=== PATIENT | male | born 1965 | race Caucasian/White ===

== ENCOUNTER → 2021-04-08 13:07 | Outpatient (BNVA) | payer BC, SELFPAY | PROVIDERS: PCP Internal Medicine; Visit Provider Urology ==

== ENCOUNTER → 2021-10-06 09:42 | Outpatient (BNVA) | payer BC, SELFPAY | PROVIDERS: PCP Internal Medicine; Visit Provider Urology | DX: N40.1 Benign prostatic hyperplasia with lower urinary tract symptoms (principal); N13.8 Other obstructive and reflux uropathy; R35.1 Nocturia; N52.9 Male erectile dysfunction, unspecified; Z79.899 Other long term (current) drug therapy | CPT/HCPCS: 51798 ==

== ENCOUNTER → 2022-12-10 14:05 | Outpatient (BNVA) | payer BC, SELFPAY | PROVIDERS: PCP Internal Medicine; Visit Provider Urology | DX: N40.1 Benign prostatic hyperplasia with lower urinary tract symptoms (principal); N13.8 Other obstructive and reflux uropathy; N52.1 Erectile dysfunction due to diseases classified elsewhere; R35.1 Nocturia; R33.9 Retention of urine, unspecified; Z79.899 Other long term (current) drug therapy | CPT/HCPCS: 51798 ==

== ENCOUNTER 2023-06-15 10:12 | Outpatient (AMB) | payer BC, SELFPAY ==
--- NOTE | 2023-06-15 09:31 | MHC.OFFVIS ---
Intake Intake Visit Reasons: 6m/follow up Allergies No Known Allergies Allergy (Verified 12/10/22 14:26) PFSH Medical History Depression Erectile dysfunction History of urinary hesitancy Hyperlipidemia Memory loss Nocturia Testicle pain Weak urinary stream Surgical History History of surgery Coding
--- NOTE | 2023-06-15 10:13 | MHC.OFFVIS ---
Intake Intake Visit Reasons: 6m/follow up [phone] Intake Note: Patient is presesnt for telephone appt Allergies No Known Allergies Allergy (Verified 12/10/22 14:26) Medication List - Last Reconciled 06/15/23 by Gopal Scott MD atorvastatin 20 mg PO DAILY bupropion HCl 150 mg PO QAM bupropion HCl 300 mg PO DAILY quetiapine 50 mg PO BEDTIME terazosin 10 mg PO BEDTIME 90 days HPI HPI Comments History of Present Illness Details Francesco BOWDEN is a very pleasant male. He is a patient of Dr Swenson. He is seen for the following urologic conditions. - BPH - ED Telemedicine Evaluation 15 min Consultation [employer] [place] Video attempted Variable hesitancy and stream Did discuss possibility prostate procedure May double medication on days he is traveling Interested in GreenLight laser to be performed in mid July - small prostate Lower Urinary Tract Symptoms:? Continued good effect from terazosin ? Current treatment includes ?Terazosin 10 mg effective, tamsulosin had become ineffective ? Symptoms include?incomplete emptying, weak stream, nocturia (>2), and are progressing.? Results from testing include? cystoscopy ?no abnormality seen 03/12 - trabeculation with early diverticulum ? renal/bladder us ?Yes ? date ? 02/09 Good emptying ? PVR ?30 ? prostate size ?30 ? psychiatric diagnosis ?No ? Testing at next visit will include?12 month review Erectile dysfunction:? He presents today for?for continued evaluation and management of erectile dysfunction.? Symptoms have been present for/since?Ongoing.? Current treatment includes?- Good response to sildenafil 40 mg.? PFSH Medical History Depression Memory loss Hyperlipidemia Testicle pain Erectile dysfunction Nocturia History of urinary hesitancy Weak urinary stream Surgical History History of surgery Review of Systems Const All systems reviewed & are unremarkable except as noted in HPI and below Reports no additional complaints Resp Reports no additional complaints GI Reports no additional complaints Reports as per HPI Musc Reports no additional complaints Physical Exam Telemedicine evaluation Appropriate responses Regular breathing rate and rhythm HEENT Head: Yes normal to inspection Ears: hearing grossly normal bilaterally Eyes General: appearance normal, both eyes and all related structures Neck Neck: Yes normal visual inspection Chest Chest palpation & inspection: normal inspection of the chest Resp Effort & Inspection: normal respiratory effort and able to speak in complete sentences Assessment & Plan Assessment & Plan (1) BPH w urinary obs/LUTS: Code(s): N40.1 - Benign prostatic hyperplasia with lower urinary tract symptoms; N13.8 - Other obstructive and reflux uropathy (2) Weak urinary stream: Code(s): R39.12 - Poor urinary stream (3) Erectile dysfunction: Code(s): N52.9 - Male erectile dysfunction, unspecified Qualifiers: Erectile dysfunction type: vasculogenic Plan We discussed the nature of the decision and reasonable options for performing a prostate intervention. Interventions include TURP, GreenLight laser enucleation of the prostate, GreenLight laser ablation of the prostate, transurethral incision of the prostate, and I-Tend prostate procedure. Options such as medical therapy were discussed. The relative uncertainties and benefits related to each alternate procedure were adequately discussed. General surgical risks including, but not limited to, pain, bleeding, infection, myocardial infarction, pulmonary embolus, deep vein thrombosis and cerebrovascular accident which may result in further hospitalization were discussed. Full disclosure of the procedure as well as all major risks, benefits and complications were discussed including but not limited to damage to the urethra or bladder neck, recurrent BPH, retrograde ejaculation, bladder infection, urge, de kristopher frequency, incomplete emptying, dysuria, remote chance of erectile dysfunction, epididymitis, and meatal stenosis. The success rate of the procedure was discussed. Success of the procedure in the short-term does not necessarily guarantee that long-term success will be maintained. Suitable follow up will need to be maintained. The patient showed understanding of discussion. An opportunity was provided for questions to be answered and wishes to proceed with the following procedure. - GLP incisions Patient Instructions: Imaging studies, laboratory and physical exam results were discussed and reviewed in detail. No major barriers to patient understanding were identified. An opportunity to ask questions regarding the treatment plan was provided. All questions were answered. The patient expressed understanding and agreement with the above treatment plan. The patient is aware they should contact our office by phone for worsening of their current condition or the appearance of new urologic symptoms. Compliance is encouraged with any medications and followup testing that is ordered. It is a privilege to participate in the urologic care of your patient. If you have any questions or concerns regarding treatment for the above conditions, or other urologic issues, please do not hesitate to contact me. The office telephone contact is [phone]. This note is constructed using voice recognition software. While every effort has been made to ensure accuracy water superintendent errors may have been included. Yours sincerely, Dr Gopal Scott MD, [facility] - Urology Providers of Expert, Compassionate Care for the Genitourinary System Telehealth Telehealth Location of provider rendering services: practice address Location of patient: address on file Patient Identification confirmed using: Name, : Yes Telehealth method: video Patient verbally consented to treatment: Yes Patient verbally consented to billing insurance company: Yes Patient informed of any privacy concerns related to visit: Yes Coding Level of Care Code Tele Est Pt Level 4 (68762) Diagnoses BPH w urinary obs/LUTS N40.1; N13.8 Weak urinary stream R39.12 Erectile dysfunction N52.9 Erectile dysfunction type: vasculogenic
== END 2023-06-15 10:48 | disposition home or self-care (01) ==
LOC: HO.HUSH 10:12
PROVIDERS: PCP Internal Medicine; Visit Provider Urology
DX: N40.1 Benign prostatic hyperplasia with lower urinary tract symptoms (principal); N13.8 Other obstructive and reflux uropathy; R39.12 Poor urinary stream; N52.9 Male erectile dysfunction, unspecified
CPT/HCPCS: 99214

== ENCOUNTER → 2023-06-15 10:12 | Outpatient (BNVA) | payer BC, SELFPAY | PROVIDERS: PCP Internal Medicine; Visit Provider Urology ==

== ENCOUNTER 2023-09-01 10:23 | Outpatient (AMB) | payer BC, SELFPAY ==
--- NOTE | 2023-09-01 10:22 | A.OFFVIS_ITS ---
Intake Intake Visit Reasons: H&P Greenlight Intake Note: Patient presents today for a Greenlight Procedure follow-up Meds- Terazosin Allergies to Antibiotic- No Known Allergies Blood Thinner- None Clinical Writer Required: No Allergies No Known Allergies Allergy (Verified 09/01/23 10:24) HPI HPI Comments History of Present Illness Details Francesco BOWDEN is a very pleasant male. He is a patient of Dr Swenson. He is seen for the following urologic conditions. - lower urinary tract symptoms - erectile dysfunction Telemedicine Evaluation 15 min Consultation [employer] Palmira Video attempted Discussion regarding GreenLight laser Expectations outlined Vaughn catheter will stay from day of surgery for 3 days Two weeks of restricted activity to allow healing Will have 2-4 weeks of urge frequency following the procedure Lower Urinary Tract Symptoms:? Continued good effect from terazosin ? Current treatment includes ?Terazosin 10 mg effective, tamsulosin had become ineffective ? Symptoms include?incomplete emptying, weak stream, nocturia (>2), and are progressing.? Results from testing include? cystoscopy ?no abnormality seen 03/12 - trabeculation with early diverticulum ? renal/bladder us ?Yes ? date ? 02/09 Good emptying ? PVR ?30 ? prostate size ?30 ? psychiatric diagnosis ?No ? Testing at next visit will include?12 month review Erectile dysfunction:? He presents today for?for continued evaluation and management of erectile dysfunction.? Symptoms have been present for/since?Ongoing.? Current treatment includes?- Good response to sildenafil 40 mg.? [facility] Medical History Depression Memory loss Hyperlipidemia Testicle pain Erectile dysfunction Nocturia History of urinary hesitancy Weak urinary stream Surgical History History of surgery Review of Systems Const All systems reviewed & are unremarkable except as noted in HPI and below Reports no additional complaints Resp Reports no additional complaints GI Reports no additional complaints Reports as per HPI Musc Reports no additional complaints Physical Exam Telemedicine evaluation Appropriate responses Regular breathing rate and rhythm HEENT Head: Yes normal to inspection Ears: hearing grossly normal bilaterally Eyes General: appearance normal, both eyes and all related structures Neck Neck: Yes normal visual inspection Chest Chest palpation & inspection: normal inspection of the chest Resp Effort & Inspection: normal respiratory effort and able to speak in complete sentences Assessment & Plan Assessment & Plan (1) Erectile dysfunction: Code(s): N52.9 - Male erectile dysfunction, unspecified Qualifiers: Erectile dysfunction type: vasculogenic (2) Nocturia: Code(s): R35.1 - Nocturia (3) BPH w urinary obs/LUTS: Code(s): N40.1 - Benign prostatic hyperplasia with lower urinary tract symptoms; N13.8 - Other obstructive and reflux uropathy Plan Risks, benefits and alternatives to therapy were discussed. These include but are not limited to infection, bleeding, damage to local organs and tissues, need for further interventions. Anesthetic risks regarding cardiac arrhythmia, blood clots, and potential mortality were discussed. The patient understands the typical recovery time and the outpatient nature of the procedure. After consideration of these risks the patient gives full informed consent and they wish to move ahead with the procedure. GreenLight laser prostatectomy Patient Instructions: Imaging studies, laboratory and physical exam results were discussed and reviewed in detail. No major barriers to patient understanding were identified. An opportunity to ask questions regarding the treatment plan was provided. All questions were answered. The patient expressed understanding and agreement with the above treatment plan. The patient is aware they should contact our office by phone for worsening of their current condition or the appearance of new urologic symptoms. Compliance is encouraged with any medications and followup testing that is ordered. It is a privilege to participate in the urologic care of your patient. If you have any questions or concerns regarding treatment for the above conditions, or other urologic issues, please do not hesitate to contact me. The office telephone contact is [phone]. This note is constructed using voice recognition software. While every effort has been made to ensure accuracy building performance specialist errors may have been included. Yours sincerely, Dr Gopal Scott MD, [facility] - Urology Providers of Expert, Compassionate Care for the Genitourinary System Telehealth Telehealth Location of provider rendering services: practice address Location of patient: address on file Patient Identification confirmed using: Name, : Yes Telehealth method: video Patient verbally consented to treatment: Yes Patient verbally consented to billing insurance company: Yes Patient informed of any privacy concerns related to visit: Yes Coding Level of Care Code Tele Est Pt Level 3 (17428) Diagnoses Erectile dysfunction N52.9 Erectile dysfunction type: vasculogenic Nocturia R35.1 BPH w urinary obs/LUTS N40.1; N13.8
== END 2023-09-01 11:27 | disposition home or self-care (01) ==
LOC: HO.HUSH 10:23
PROVIDERS: PCP Internal Medicine; Referring Provider Internal Medicine; Visit Provider Urology
DX: N40.1 Benign prostatic hyperplasia with lower urinary tract symptoms (principal); N52.9 Male erectile dysfunction, unspecified; R35.1 Nocturia; N13.8 Other obstructive and reflux uropathy
CPT/HCPCS: 99213

== ENCOUNTER → 2023-09-01 10:23 | Outpatient (BNVA) | payer BC, SELFPAY | PROVIDERS: PCP Internal Medicine; Visit Provider Urology ==

== ENCOUNTER 2023-09-19 06:17 | Day surgery (SDC) | payer BC, SELFPAY ==
--- NOTE | 2023-09-16 09:16 | HO.ANESPROP2 ---
Documented by User: Kareen Jaime NP 09/16/23 09:16 HPI - Anesthesia Eval Consult details Narrative: 58yo M for Laser Ablation Prostate excision w/Green Light PMFSH Active Problems Active Problems: All Active Problems (Updated 06/15/23 @ 10:43 by Gopal Scott MD) BPH w urinary obs/LUTS (Acute) Weak urinary stream (Acute) Nocturia (Acute) Erectile dysfunction (Acute) Past Medical History Medical History Depression Memory loss Hyperlipidemia Testicle pain Erectile dysfunction Nocturia History of urinary hesitancy Weak urinary stream Surgical History Surgical History History of surgery Social History Social History Patient Tobacco Use Status: Never used Tobacco Use of substances other than those prescribed or required for medical reasons: No Are you DNR?: No Advance Directives: No Advance Directives Information Provided: Yes Meds Allergies Allergy/AdvReac Type Severity Reaction Status Date / Time No Known Allergies Allergy Verified 09/01/23 10:24 Home Medications Medication Instructions Recorded Confirmed Last Taken Type atorvastatin 20 mg tablet 20 mg PO DAILY 04/08/21 06/15/23 09/18/23 History bupropion HCl 150 mg 24 hr tablet, 150 mg PO QAM 04/08/21 06/15/23 Unknown History extended release bupropion HCl 300 mg 24 hr tablet, 300 mg PO DAILY 04/08/21 06/15/23 Unknown History extended release quetiapine 50 mg tablet 50 mg PO BEDTIME 04/08/21 06/15/23 Unknown History Assessment and Plan Assessment Anesthesia Assessment: Chart Reviewed Documented by User: Greg Aguillon MD 09/19/23 07:41 PMFSH Past Medical History Medical History Depression Memory loss Hyperlipidemia Testicle pain Erectile dysfunction Nocturia History of urinary hesitancy Weak urinary stream Family History Family history of problems with anesthesia: No Surgical History Surgical History History of surgery History of Problems with Anesthesia: No Social History Social History Patient Tobacco Use Status: Never used Tobacco Use of substances other than those prescribed or required for medical reasons: No Are you DNR?: No Advance Directives: No Advance Directives Information Provided: Yes Meds Allergies Allergy/AdvReac Type Severity Reaction Status Date / Time No Known Allergies Allergy Verified 09/01/23 10:24 Home Medications Medication Instructions Recorded Confirmed Last Taken Type atorvastatin 20 mg tablet 20 mg PO DAILY 04/08/21 06/15/23 09/18/23 History bupropion HCl 150 mg 24 hr tablet, 150 mg PO QAM 04/08/21 06/15/23 Unknown History extended release bupropion HCl 300 mg 24 hr tablet, 300 mg PO DAILY 04/08/21 06/15/23 Unknown History extended release quetiapine 50 mg tablet 50 mg PO BEDTIME 04/08/21 06/15/23 Unknown History Exam Airway Mallampati Class: I TM Dist: <=3cm Neck ROM: Full Loose/Missing/Broken Teeth: No Heart: ok Lungs: ok Assessment and Plan Assessment Anesthesia Assessment: Anesthesia Plan Discussed Final Anesthetic Review Family History of Problems with Anesthesia: No History of Problems with Anesthesia: No NPO: Yes ASA Class: II Final Preanesthetic Review: No Changes in Pt Med Stat, Meds/Allgs Chart Reviewed, Consent Obtained/Reviewed and Anes Risks/Benef Reviewed Patient Risk: Low Procedure Risk: Low Anesthetic Plan Anesthetic Plan: GA and Agree w/ Assess. and Plan Disposition: Standard PACU
[2023-09-19] VITALS (7 sets, daily range): BP systolic 109–136; BP diastolic 67–79; PULSE 64–78; RESP 16; TEMP 36.1–36.4; O2SAT 96–99; BMI 22.9
[2023-09-19] MEDS: Lactated Ringers 1,000 ML 100 ML IVCONT (06:44)
--- NOTE | 2023-09-19 07:39 | MHC.SHP ---
Pre-Procedural Eval Section A - 24 Hr Update-Section A only Date of Service: 09/19/23 The patient is an INPATIENT: No Changes since office visit: No Cold of Flu in the past 2 weeks, No New Medical Problems, No Changes in Medication and No Patient answered all questions The patient has been examined within 24 hours of the surgical procedure. The History & Physical has been completed within 30 days and I have reviewed it.: Yes Section B - Complete if H&P > 30 days Chief Complaint: Benign prostatic hyperplasia with lower urinary tr Details of Present Illness: plan for greenlight laser Relevant Family History (Specify if Yes): No Relevant Social History: None Present Medications: see Short Stay Collaborative assessment Medical History: No relevant PMH History of Previous Operations: Relevant previous surgery/procedure and date(s) Allergies: Allergies Allergy/AdvReac Type Severity Reaction Status Date / Time No Known Allergies Allergy Verified 09/01/23 10:24 Review of Systems Sugical H&P ROS: Negative: Constitution, Cardiovascular, Respiratory, Neurological, Psychiatric, Hem-Onc, Allergic/Immunologic, Gastrointestinal, Genitourinary, Musculoskeletal, Integumentary, Endocrine and Eyes/Ears/Nose/Throat Exam Surgical H&P Exam: Normal: HEENT, Normal: Heart, Normal: Lungs, Normal: Extremities, Normal: Abdomen, Normal: Skin and Normal: Neurological Plan Diagnosis/Plan: Unchanged I have reviewed the history and physical and performed a pertinent physical examination on my patient. No changes have occurred unless specified. Time Spent With Patient Time: Total time managing care of this patient today ____ minutes.
--- NOTE | 2023-09-19 10:08 | P.OP_ITS ---
Operative Note Operative Note Date of Service: 09/19/23 Narrative: PreOperative Diagnosis: Bladder outlet obstruction Post Operative Diagnosis: Bladder outlet obstruction Procedure: GreenLight Laser Enucleation of the prostate CPT 81842 Surgeon: Dr Gopal Scott Anesthesia: General History of bladder outlet obstruction. Treated with alpha-genesis and other medications. Still with symptoms. On cystoscopy in office has tight bladder neck. Recommendation for prostate procedure with laser enucleation of prostate. Risks and benefits have been discussed. Focus was placed on development of retrograde ejaculation which is a normal part of this procedure. Procedure: After informed consent was verified the patient was brought to the operating room and placed in a supine position. Anesthesia was administered per protocol. Patient was placed in modified dorsal lithotomy position and prepped and draped in a sterile fashion. Safety pause time-out was confirmed. Antibiotics have been given. A Twenty-four Italian laser cystoscope was inserted per urethra. No abnormalities were found of the anterior and bulbar urethra. The bladder was examined and both ureteric orifices were seen in their normal positions away from the area of interest. Using a GreenLight laser with settings of 80 w incisions were made at the 5 and 7 o'clock position. The incisions were taken down from the bladder neck down to the level of the veru. These were gradually deepened in order to define the lateral aspects of the median lobe area. Once clearly defined they will also extended in the lateral directions in order to create a deep groove. The median lobe was then ablated and enucleated tissue released into the bladder with the laser power increased to 120 W. Once the median lobe area had been cleared attention was directed to the lateral lobes. Starting with the patient's left lateral lobe. First the 05:00 o'clock groove was further developed. This was moved in the lateral direction to undermine the tissue on the lateral side running from the bladder neck to the prostate apex. Focus was then placed on the laser at the 1 o'clock position to developing a secondary groove down to the level of bladder fibers. The creation of a second deep groove defined a segment of intervening tissue similar to a slice of orange. At the apex of the prostate the 2 grooves were linked the us releasing the intervening tissue. This tissue was then removed with a combination of enucleation and ablation working from the apex toward the bladder neck. A similar procedure was repeated on the patient's right-hand side. The only differences being the position of the lateral groove at he 7 'oclock positioin and the secondary groove at the 11 o'clock position, Otherwise the procedure was developed in a mirror fashion. After the majority of tissue had been debulked remnant tissue was ablated with the side fire laser and the curve of the prostate followed up each side wall clearly defining the anterior remnant strip that remained between the 11 and 1 o'clock positions. When this was had been completed debris and pieces of prostate were removed from the bladder with irrigation. Both ureteric orifices were reviewed again in shown to be patent in away from any areas of energy damage. The apical area was reviewed in any stray ooze was controlled. A 22 Italian 30 cc balloon Vaughn catheter was placed over a stylet into the bladder. Clear efflux was obtained upopn irrigation with a Beau piston syringe. 30 cc was placed in the balloon and gentle traction was placed. A snap was used to hold tension on the catheter to control bleeding during patient moved and transported. A drainage bag was placed. Once transportation is complete to the PACU the snap will be removed. The patient tolerated the procedure well, he was extubated in the operating and transferred in a stable condition to the recovery area. Total Power 83 kW Lasing time 13:16 Pathology: Prostate tissue Drains: Vaughn catheter
== END 2023-09-19 10:48 | disposition home or self-care (01) ==
PROVIDERS: PCP Internal Medicine; Visit Provider Urology
PROC: (CPT 52648; principal; 2023-09-19 08:40)
DX: N40.1 Benign prostatic hyperplasia with lower urinary tract symptoms (principal); N32.0 Bladder-neck obstruction; R39.12 Poor urinary stream; N52.9 Male erectile dysfunction, unspecified; R35.1 Nocturia; R39.11 Hesitancy of micturition; F32.A Depression, unspecified; Z79.899 Other long term (current) drug therapy; Z98.890 Other specified postprocedural states
CPT/HCPCS: 52649; 88305; J1956; J2250; J2704; J3010

== ENCOUNTER → 2023-09-19 06:17 | Outpatient (BNV) | payer BC, SELFPAY | PROVIDERS: PCP Internal Medicine; Visit Provider Urology | DX: N40.1 Benign prostatic hyperplasia with lower urinary tract symptoms (principal); N13.8 Other obstructive and reflux uropathy | CPT/HCPCS: 52649 ==

== ENCOUNTER 2023-09-21 08:04 | Outpatient (AMB) | payer BC, SELFPAY ==
--- NOTE | 2023-09-21 08:28 | A.OFFVIS_ITS ---
Intake Intake Visit Reasons: Voiding trial (Greenlight)Confirmed Intake Note: Patient presents today for a Voiding Trial Meds- Terazosin Allergies to Antibiotic- No Known Allergies Blood Thinner- None Issuer Required: No Allergies No Known Allergies Allergy (Verified 09/21/23 08:43) HPI HPI Comments History of Present Illness Details Francesco BOWDEN is a very pleasant male. He is a patient of Dr Swenson. He is seen for the following urologic conditions. - lower urinary tract symptoms - erectile dysfunction Here for removal of catheter after GreenLight laser Voiding trial performed and able to empty Four week follow-up PVR Moving to [place] end of September Lower Urinary Tract Symptoms:? Continued good effect from terazosin ? Current treatment includes ?Terazosin 10 mg effective, tamsulosin had become ineffective ? Symptoms include?incomplete emptying, weak stream, nocturia (>2), and are progressing.? Results from testing include? cystoscopy ?no abnormality seen 03/12 - trabeculation with early diverticulum ? renal/bladder us ?Yes ? date ? 02/09 Good emptying ? PVR ?30 ? prostate size ?30 ? psychiatric diagnosis ?No ? Testing at next visit will include?12 month review Erectile dysfunction:? He presents today for?for continued evaluation and management of erectile dysfunction.? Symptoms have been present for/since?Ongoing.? Current treatment includes?- Good response to sildenafil 40 mg.? [facility] Medical History Depression Memory loss Hyperlipidemia Testicle pain Erectile dysfunction Nocturia History of urinary hesitancy Weak urinary stream Surgical History History of surgery Social History Patient Tobacco Use Status: Never used Tobacco Review of Systems Const Denies chills and Denies fever(s) Card Reports no additional complaints and Denies syncope Resp Denies cough GI Denies abdominal pain and Denies heartburn Reports as per HPI and Denies change in libido Neuro Denies syncope Psych Denies change in libido Endo Denies change in libido Physical Exam Const General: cooperative, healthy appearing, comfortable and no acute distress Orientation/consciousness: patient oriented x3 HEENT Face and sinus: Yes normal facial exam Mouth: moist mucous membranes Neck Neck: Yes normal visual inspection, Yes full ROM and Yes trachea midline Chest Chest palpation & inspection: normal inspection of the chest Resp Effort & Inspection: normal respiratory effort, able to speak in complete sentences and no respiratory distress GI Inspection: Yes normal to inspection Back/Spine/Pelvis Cervical Spine: normal cervical lordosis Thoracic/Lumbar Spine: thoracic and lumbar spine normal to inspection Skin General skin exam: no rashes or lesions noted Neuro General: patient oriented x3, gait normal, tone normal and moves all extremities Extrem General: Yes normal to inspection and Yes capillary refill normal Office Procedures Bladder/Catheter Procedure Details: Patient presents to office for voiding trial status post greenlight procedure. 120mls sterile water instilled into the bladder through catheter. 22 fr 30ml balloon catheter removed, patient tolerated well. Voided 120mls of urine. Dr. Scott to room, 4 week follow up with Dr. Scott [id number] of Bladder Procedure code (CPT) selection complete Assessment & Plan Assessment & Plan (1) Weak urinary stream: Code(s): R39.12 - Poor urinary stream (2) Erectile dysfunction: Code(s): N52.9 - Male erectile dysfunction, unspecified Qualifiers: Erectile dysfunction type: vasculogenic (3) BPH w urinary obs/LUTS: Code(s): N40.1 - Benign prostatic hyperplasia with lower urinary tract symptoms; N13.8 - Other obstructive and reflux uropathy Plan Four week follow-up Orders: Orders AMB Bladder/Catheter Procedure Today N13.8 - Other obstructive and reflux uropathy, N40.1 - Benign prostatic hyperplasia with lower urinary tract symptoms, R39.12 - Poor urinary stream AMB Post Void Residual by ultrasound Today N13.8 - Other obstructive and reflux uropathy, N40.1 - Benign prostatic hyperplasia with lower urinary tract symptoms, R35.1 - Nocturia, R39.12 - Poor urinary stream Patient Instructions: Imaging studies, laboratory and physical exam results were discussed and reviewed in detail. No major barriers to patient understanding were identified. An opportunity to ask questions regarding the treatment plan was provided. All questions were answered. The patient expressed understanding and agreement with the above treatment plan. The patient is aware they should contact our office by phone for worsening of their current condition or the appearance of new urologic symptoms. Compliance is encouraged with any medications and followup testing that is ordered. It is a privilege to participate in the urologic care of your patient. If you have any questions or concerns regarding treatment for the above conditions, or other urologic issues, please do not hesitate to contact me. The office telephone contact is [phone]. This note is constructed using voice recognition software. While every effort has been made to ensure accuracy sales developer errors may have been included. Yours sincerely, Dr Gopal Scott MD, [facility] - Urology Providers of Expert, Compassionate Care for the Genitourinary System Coding Level of Care Code Est Pt Level 3 (00818) Diagnoses Weak urinary stream R39.12 Erectile dysfunction N52.9 Erectile dysfunction type: vasculogenic BPH w urinary obs/LUTS N40.1; N13.8 CPT Codes Bladder/Catheter Procedure - CPT: 88646-[id number] of Bladder ([id number])
== END 2023-09-21 09:05 | disposition home or self-care (01) ==
PROVIDERS: PCP Internal Medicine; Visit Provider Urology
DX: N40.1 Benign prostatic hyperplasia with lower urinary tract symptoms (principal); R39.12 Poor urinary stream; N52.9 Male erectile dysfunction, unspecified; N13.8 Other obstructive and reflux uropathy
CPT/HCPCS: 99024

== ENCOUNTER → 2023-09-21 08:04 | Outpatient (BNVA) | payer BC, SELFPAY | PROVIDERS: PCP Internal Medicine; Visit Provider Urology | DX: N40.1 Benign prostatic hyperplasia with lower urinary tract symptoms (principal); N13.8 Other obstructive and reflux uropathy; R39.12 Poor urinary stream; N52.9 Male erectile dysfunction, unspecified | CPT/HCPCS: 51700 ==

== ENCOUNTER 2023-09-24 05:09 | Emergency (ER) | payer BC, SELFPAY ==
[2023-09-24 05:20] VITALS: BP 106/69; PULSE 84; RESP 14; TEMP 36.5; O2SAT 95; BMI 22.5
--- NOTE | 2023-09-24 05:44 | ED.MALEGU ---
HPI - Male Genitourinary General Chief complaint: Urogenital-Male Stated complaint: Post surgery pain/bleeding Time Seen by Provider: 09/24/23 05:43 Source: patient Mode of arrival: ambulatory History of Present Illness HPI Narrative: Patient with history of bladder outlet obstruction status post laser enucleation on 09/19/2023 had Vaughn catheter for 2 days which was removed patient was doing good next 2 days, since yesterday patient noticed gross hematuria and since last night could not urinate came with bladder fullness bladder scan shows more than 300 cc urine patient not on any anticoagulants Related Data Home Medications Medication Instructions Recorded Confirmed atorvastatin 20 mg tablet 20 mg PO DAILY 04/08/21 06/15/23 bupropion HCl 150 mg 24 hr tablet, 150 mg PO QAM 04/08/21 06/15/23 extended release bupropion HCl 300 mg 24 hr tablet, 300 mg PO DAILY 04/08/21 06/15/23 extended release quetiapine 50 mg tablet 50 mg PO BEDTIME 04/08/21 06/15/23 Previous Rx's Medication Instructions Recorded terazosin 10 mg capsule 10 mg PO BEDTIME 90 days #90 caps 04/18/23 Allergies Allergy/AdvReac Type Severity Reaction Status Date / Time No Known Allergies Allergy Verified 09/24/23 05:19 Review of Systems Review of Systems: Yes all other systems are reviewed and are negative [facility] Past Medical History Medical History Depression Memory loss Hyperlipidemia Testicle pain Erectile dysfunction Nocturia History of urinary hesitancy Weak urinary stream Surgical History History of surgery Social History Social History Alcohol intake: never Patient Tobacco Use Status: Never used Tobacco Smoked in Last 30 Days: No Use of substances other than those prescribed or required for medical reasons: No Advance Directives: No Advance Directives Information Provided: Yes Physical Exam Vital Signs: Vital Signs: Last Vital Signs Temp 97.7 F 09/24/23 05:20 Pulse 84 09/24/23 05:20 Resp 14 09/24/23 05:20 BP 106/69 09/24/23 05:20 Pulse Ox 95 09/24/23 05:20 O2 Del Method Room Air 09/24/23 05:20 BMI result Body Mass Index 22.5 Appearance: Alert. Oriented X3. No acute distress. Eyes: No pallor or icterus ENT: Pharynx normal. Oral Mucosa moist Neck: Normal inspection. Neck supple. CVS: Normal heart rate and rhythm. Pulses normal. Respiratory: No respiratory distress. Equal air entry bilateral, Abdomen: Soft and nontender. Bowel sounds are present, no mass palpable, no CVA tenderness Skin: Skin warm and dry. Normal skin color. Normal skin turgor. Extremities: No lower extremity edema. No calf tenderness Neuro: Oriented X 3. Medications Administered Discontinued Medications Generic Name Dose Route Start Last Admin Trade Name Freq PRN Reason Stop Dose Admin Lidocaine HCl 10 ml 09/24/23 05:43 09/24/23 05:56 Lidocaine Hcl 2 % Urojet 10 Ml Jel.Pf.[place] TOPICAL 09/24/23 05:44 10 ml ONCE ONE Administration Medical Decision Making Medical Decision Making MDM Narrative: Patient with gross hematuria after prostate surgery bladder irrigation was done after placing [address] Vaughn catheter no blood clots came out patient had light pinkish bladder irrigation fluid will discharge patient home advised to drink plenty of fluids and follow-up with urologist as scheduled Procedures Catheter Insertion (Urinary) Date of insertion: 09/24/23 Reason for placing: Yes Reason for placing indwelling catheter: Acute urinary retention Bladder scan/ultrasound used before catheterization: Yes Estimated amount of urine (mLs): 350 Antiseptic solution prep: Povidone-Iodine Topical anesthesia used: Yes Catheter type/location: 3-way Urethral Size (Nigerien): 18 Catheter balloon size (mL): 30 Catheter balloon amount: 30 Results: successfully catheterized-immediate flow Procedure performed: without complications Discharge Plan Discharge Clinical Impression: Hematuria Patient Disposition: Home, Self-Care Instructions: Hematuria (ED) Additional Instructions: Drink plenty of fluids Follow-up with urologist as planned Prescriptions: No Action terazosin 10 mg capsule 10 mg PO BEDTIME 90 Days Qty: 90 1RF quetiapine 50 mg tablet 50 mg PO BEDTIME bupropion HCl 150 mg tablet extended release 24 hr 150 mg PO QAM bupropion HCl 300 mg tablet extended release 24 hr 300 mg PO DAILY atorvastatin 20 mg tablet 20 mg PO DAILY
[2023-09-24] MEDS: Lidocaine HCl 2 % Urojet 10 ML JEL.PF.APP TOPICAL (05:56)
--- NOTE | 2023-09-24 06:24 | PC.NURSE ---
Pt reports pressure to bladder and voiding small amounts of BRB since 1900 last night. Bladder scan results >319 mL. 18F f/C 3 way placed, draining BRB, no clots noted. Pt tolerated well.
[2023-09-24 06:52] VITALS: BP 115/77; PULSE 91; RESP 16; O2SAT 97
--- NOTE | 2023-09-24 06:57 | MHC.EDTECH ---
Pt's output 700cc's.
== END 2023-09-24 07:00 | disposition home or self-care (01) ==
PROVIDERS: Emergency Provider Internal Medicine
DX: R33.9 Retention of urine, unspecified (principal); R31.0 Gross hematuria
CPT/HCPCS: 51701; 99284

== ENCOUNTER 2023-09-24 20:37 | Emergency (ER) | payer BC, SELFPAY ==
[2023-09-24 20:42] VITALS: BP 127/74; PULSE 76; RESP 16; TEMP 37.2; O2SAT 95; BMI 22.9
--- NOTE | 2023-09-24 23:05 | ED.MALEGU ---
HPI - Male Genitourinary General Chief complaint: Urogenital-Male Stated complaint: alarcon catheter isnt working Time Seen by Provider: 09/24/23 23:05 Source: patient Mode of arrival: ambulatory Limitations: no limitations History of Present Illness HPI Narrative: Patient with history of bladder outlet obstruction status post laser enucleation on 09/19/2023 had Alarcon catheter for 2 days which was removed patient came yesterday for hematuria and 3 way catheter was placed now patient comes back again as feel bladder is full and urine is leaking around the catheter with gross hematuria no blood clots bladder scan on arrival shows 47 cc of urine Related Data Home Medications Medication Instructions Recorded Confirmed atorvastatin 20 mg tablet 20 mg PO DAILY 04/08/21 06/15/23 bupropion HCl 150 mg 24 hr tablet, 150 mg PO QAM 04/08/21 06/15/23 extended release bupropion HCl 300 mg 24 hr tablet, 300 mg PO DAILY 04/08/21 06/15/23 extended release quetiapine 50 mg tablet 50 mg PO BEDTIME 04/08/21 06/15/23 Previous Rx's Medication Instructions Recorded terazosin 10 mg capsule 10 mg PO BEDTIME 90 days #90 caps 04/18/23 Allergies Allergy/AdvReac Type Severity Reaction Status Date / Time No Known Allergies Allergy Verified 09/24/23 05:19 Review of Systems Review of Systems: Yes all other systems are reviewed and are negative [facility] Past Medical History Medical History Depression Memory loss Hyperlipidemia Testicle pain Erectile dysfunction Nocturia History of urinary hesitancy Weak urinary stream Surgical History History of surgery Social History Social History Alcohol intake: never Patient Tobacco Use Status: Never used Tobacco Smoked in Last 30 Days: No Use of substances other than those prescribed or required for medical reasons: No Advance Directives: No Advance Directives Information Provided: No Physical Exam Vital Signs: Vital Signs: Last Vital Signs Temp 97.9 F 09/24/23 23:11 Pulse 75 09/24/23 23:11 Resp 16 09/24/23 23:11 BP 115/70 09/24/23 23:11 Pulse Ox 96 09/24/23 23:11 O2 Del Method Room Air 09/24/23 23:11 BMI result Body Mass Index 22.9 Appearance: Alert. Oriented X3. No acute distress. CVS: Normal heart rate and rhythm. Pulses normal. Respiratory: No respiratory distress. Equal air entry bilateral, Abdomen: Soft mild suprapubic discomfort, Bowel sounds are present, no mass palpable, no CVA tenderness Skin: Skin warm and dry. Normal skin color. Normal skin turgor. Extremities: No lower extremity edema. No calf tenderness Neuro: Oriented X 3. No motor deficit. Medical Decision Making Medical Decision Making [facility] Narrative: Patient with gross hematuria post prosthetic surgery comes here for leaking of the urine around the Alarcon catheter with discomfort. Manual Bladder irrigation was done and small amount of clot was removed urine become more clear pinkish in color and patient feel comfortable. Post irrigation bladder showed only 17 cc urine in the bladder Discharge Plan Discharge Clinical Impression: Hematuria Patient Disposition: Home, Self-Care Instructions: Hematuria (ED) Additional Instructions: Care of Alarcon catheter as advised Follow with urologist as scheduled Prescriptions: No Action terazosin 10 mg capsule 10 mg PO BEDTIME 90 Days Qty: 90 1RF quetiapine 50 mg tablet 50 mg PO BEDTIME bupropion HCl 150 mg tablet extended release 24 hr 150 mg PO QAM bupropion HCl 300 mg tablet extended release 24 hr 300 mg PO DAILY atorvastatin 20 mg tablet 20 mg PO DAILY Interventions: ED Discharge Assessment Last Done: 09/24/23 23:57 Discharge Date/Time: 09/25/23 00:01
[2023-09-24 23:11] VITALS: BP 115/70; PULSE 75; RESP 16; TEMP 36.6; O2SAT 96
--- NOTE | 2023-09-24 23:57 | PC.NURSE ---
Pt feeling less pressure after manual irrigation done by Provider Vicki via [address] way cath. Bladder scan results after 17 mL, draining light red blood.
== END 2023-09-25 00:01 | disposition home or self-care (01) ==
PROVIDERS: Emergency Provider Internal Medicine; PCP Internal Medicine
DX: R33.9 Retention of urine, unspecified (principal); R31.9 Hematuria, unspecified
CPT/HCPCS: 51701; 99284

== ENCOUNTER → 2023-09-26 10:28 | Outpatient (BNVA) | payer BC, SELFPAY | PROVIDERS: PCP Internal Medicine; Visit Provider Urology | DX: N40.1 Benign prostatic hyperplasia with lower urinary tract symptoms (principal); N13.8 Other obstructive and reflux uropathy; R35.1 Nocturia | CPT/HCPCS: 51700; 51798 ==

== ENCOUNTER 2023-10-11 13:43 | Outpatient (AMB) | payer BC, SELFPAY ==
--- NOTE | 2023-10-11 13:52 | A.OFFVIS_ITS ---
Intake Visit Reasons: S/P Greenlight/PVR Intake Note: Patient Is Present for Post Op Follow up Procedure Done: Greenlight Urology Med: Terazosin Antibiotic Allergy: None Blood Thinner:None PVR: 89 Allergies No Known Allergies Allergy (Verified 10/11/23 13:54) HPI Comments Details: Francesco BOWDEN is a very pleasant male. He is a patient of Dr Swenson. He is seen for the following urologic conditions. - lower urinary tract symptoms - erectile dysfunction Six week follow-up GreenLight laser Happy with current urinary performance Moving to [place] Can trial coming off terazosin He will contact us Lower Urinary Tract Symptoms:? Continued good effect from terazosin ? Current treatment includes ?Terazosin 10 mg effective, tamsulosin had become ineffective ? Symptoms include?incomplete emptying, weak stream, nocturia (>2), and are progressing.? Results from testing include? cystoscopy ?no abnormality seen 03/12 - trabeculation with early diverticulum ? renal/bladder us ?Yes ? date ? 02/09 Good emptying ? PVR ?30 ? prostate size ?30 ? psychiatric diagnosis ?No - 09/17 GreenLight laser ? Testing at next visit will include?12 month review Erectile dysfunction:? He presents today for?for continued evaluation and management of e rectile dysfunction.? Symptoms have been present for/since?Ongoing.? Current treatment includes?- Good response to sildenafil 40 mg.? PFSH Medical History Depression Memory loss Hyperlipidemia Testicle pain Erectile dysfunction Nocturia History of urinary hesitancy Weak urinary stream Surgical History History of surgery Social History Alcohol intake: never Patient Tobacco Use Status: Never used Tobacco Review of Systems Const Denies chills and Denies fever(s) Card Reports no additional complaints and Denies syncope Resp Denies cough GI Denies abdominal pain and Denies heartburn Reports as per HPI and Denies change in libido Neuro Denies syncope Psych Denies change in libido Endo Denies change in libido Physical Exam Const General: cooperative, healthy appearing, comfortable and no acute distress Orientation/consciousness: patient oriented x3 HEENT Face and sinus: Yes normal facial exam Mouth: moist mucous membranes Neck Neck: Yes normal visual inspection, Yes full ROM and Yes trachea midline Chest Chest palpation & inspection: normal inspection of the chest Resp Effort & Inspection: normal respiratory effort, able to speak in complete sentences and no respiratory distress GI Inspection: Yes normal to inspection Back/Spine/Pelvis Cervical Spine: normal cervical lordosis Thoracic/Lumbar Spine: thoracic and lumbar spine normal to inspection Skin General skin exam: no rashes or lesions noted Neuro General: patient oriented x3, gait normal, tone normal and moves all extremities Extrem General: Yes normal to inspection and Yes capillary refill normal Office Procedures Post Void Residual Post Residual Void Post Void Residual (PVR): 89 [id number] Void Residual by ultrasound Assessment & Plan Assessment & Plan (1) Weak urinary stream: Code(s): R39.12 - Poor urinary stream Category: Medical (2) Erectile dysfunction: Code(s): N52.9 - Male erectile dysfunction, unspecified Category: Medical Qualifiers: Erectile dysfunction type: vasculogenic (3) Nocturia: Code(s): R35.1 - Nocturia Category: Medical Plan P.r.n. follow-up Orders: Orders AMB Post Void Residual by ultrasound 10/11/23 N40.1 - Benign prostatic hyperplasia with lower urinary tract symptoms, N13.8 - Other obstructive and reflux uropathy Patient Instructions: Imaging studies, laboratory and physical exam results were discussed and reviewed in detail. No major barriers to patient understanding were identified. An opportunity to ask questions regarding the treatment plan was provided. All questions were answered. The patient expressed understanding and agreement with the above treatment plan. The patient is aware they should contact our office by phone for worsening of their current condition or the appearance of new urologic symptoms. Compliance is encouraged with any medications and followup testing that is ordered. It is a privilege to participate in the urologic care of your patient. If you have any questions or concerns regarding treatment for the above conditions, or other urologic issues, please do not hesitate to contact me. The office telephone contact is [phone]. This note is constructed using voice recognition software. While every effort has been made to ensure accuracy finance admin errors may have been included. Yours sincerely, Dr Gopal Scott MD, [facility] - Urology Providers of Expert, Compassionate Care for the Genitourinary System
== END 2023-10-11 15:11 | disposition home or self-care (01) ==
PROVIDERS: PCP Internal Medicine; Visit Provider Urology
DX: R39.12 Poor urinary stream (principal); N52.9 Male erectile dysfunction, unspecified; R35.1 Nocturia
CPT/HCPCS: 99024

== ENCOUNTER → 2023-10-11 13:43 | Outpatient (BNVA) | payer BC, SELFPAY | PROVIDERS: PCP Internal Medicine; Visit Provider Urology | DX: N40.1 Benign prostatic hyperplasia with lower urinary tract symptoms (principal); N13.8 Other obstructive and reflux uropathy; R39.12 Poor urinary stream; R35.1 Nocturia; N52.9 Male erectile dysfunction, unspecified; Z98.890 Other specified postprocedural states | CPT/HCPCS: 51798 ==